=== PATIENT | male | born 1965 | race Caucasian/White ===

== ENCOUNTER 2016-12-25 09:46 | Inpatient (IN) | payer OTHER ==
--- NOTE | 2016-12-25 11:21 | EDPHY ---
H & P Stated Complaint: Exacerbation chronic back/sciatica after bending to leaf size picker slipper this am Time Seen by Provider: 12/25/16 10:22 HPI/ROS: CHIEF COMPLAINT: back pain HISTORY OF PRESENT ILLNESS: 51-year-old male presents emergency department sent by Dr. Romeo office for an MRI of his lumbar spine. Patient has acute on chronic low back pain with radiation down his left leg. He has had 2 fusions, last 1 in 2013 of L4 through S1, over the last couple months he has had increasing pains in his left leg that are intermittent, sharp and shooting and severe. Patient reports today he noticed numbness in his foot while putting his slipper on. He feels radiation and pressure in his pelvis. He reports paresthesias in his pelvis. No loss of control of his bowel or bladder. REVIEW OF SYSTEMS: A comprehensive 10 point review of systems is otherwise negative aside from elements mentioned in the history of present illness. Source: Patient, RN/MD - Personal History Current Tetanus Diphtheria and Acellular Pertussis (TDAP): Yes - Medical/Surgical History Hx Asthma: Yes Other PMH: Back surgery 04/2014; foot drop. thyroid - Social History Smoking Status: Never smoked - Physical Exam Exam: Physical Exam Gen: Alert and Oriented, NAD HEENT: PERRL, moist mucous membranes NECK: no meningismus CV: regular rate and regular rhythm PULM: CTAB, no wheezes ABDOMEN: soft, non tender to palpation, BS present BACK: No midline or si joint tenderness. NEURO: Neurologically grossly intact, foot drop on left, 1+ dtrs left patellar and achilles, 2+ on right. Decreased sensation left lateral lower leg EXTREMITIES: normal appearing SKIN: no rash or break in skin on exposed skin PSYCH: answers questions appropriately. Constitutional: Initial Vital Signs Temperature (C) 36.7 C 12/25/16 09:47 Heart Rate 54 L 12/25/16 09:47 Respiratory Rate 16 12/25/16 09:47 Blood Pressure 134/89 H 12/25/16 09:47 O2 Sat (%) 95 12/25/16 09:47 O2 Delivery Mode Room Air Allergies/Adverse Reactions: No Known Allergies Allergy (Unverified 12/25/16 09:51) Home Medications: Medication Instructions Recorded Fluticasone Hfa 110 Mcg [Flovent 1 puffs IH BID 12/25/16 110 MCG Hfa MDI (*)] Levothyroxine [Synthroid 88 mcg 88 mcg PO DAILY06 12/25/16 (*)] TESTOSTERONE [Androgel 1.62% pump] 1 sushma TD 12/25/16 Medical Decision Making ED Course/Re-evaluation: 51-year-old male presents with acute on chronic left-sided lumbar radiculitis with new saddle paresthesias and numbness in left leg. MRI shows severe canal narrowing and synovial cyst at L3-L4 level. Dr. Romeo has seen in consult on patient and is going to take him to the operating room later today for a L3-4 fusion. Patient is aware and comfortable with this plan. Departure - Departure Disposition: [facility] Inpatient Acute Clinical Impression: Left lumbar radiculitis Condition: Fair Referrals: HEBERT SANTIAGO [Other] - As per Instructions
[2016-12-25] MEDS ORDERED: HYDROmorphONE/DILAUDID 1 MG/ML SYR IVP PRN (12:48)
[2016-12-25] MEDS ORDERED: LACTULOSE 20 GM/30 ML UDCUP PO PRN (12:48)
[2016-12-25] MEDS ORDERED: BISACODYL 10 MG SUPP PR PRN (12:48)
[2016-12-25] MEDS ORDERED: DIAZEPAM 10 MG/2 ML SYR IVP PRN (12:48)
[2016-12-25] MEDS ORDERED: HYDROCODONE/APAP 10/325 TAB PO PRN (12:48)
[2016-12-25] MEDS ORDERED: METHOCARBAMOL 750 MG TAB PO PRN (12:48)
[2016-12-25] MEDS ORDERED: NALOXONE HCL 0.4 MG/ML INJ IVP PRN (12:48)
[2016-12-25] MEDS ORDERED: TEMAZEPAM 15 MG CAP PO PRN (12:48)
[2016-12-25] MEDS ORDERED: ONDANSETRON 4 MG/2 ML VIAL IVP PRN (12:48)
[2016-12-25] MEDS ORDERED: HYDROmorphONE/DILAUDID 6 MG/30 ML PCA IV PRN (12:48)
[2016-12-25] MEDS ORDERED: DIAZEPAM 5 MG TAB PO PRN (12:48)
[2016-12-25] MEDS ORDERED: ONDANSETRON DISINTEGRATING 4 MG TAB PO PRN (12:48)
[2016-12-25] MEDS ORDERED: oxyCODONE IR 5 MG TAB PO PRN (12:48)
[2016-12-25] MEDS ORDERED: MAGNESIUM HYDROXIDE 30 ML UDCUP PO PRN (12:48)
[2016-12-25] MEDS ORDERED: diphenhydrAMINE 25 MG CAP PO PRN (12:48)
[2016-12-25] MEDS ORDERED: POLYETHYLENE GLYCOL 3350 17 GM PKT PO PRN (12:48)
[2016-12-25 13:00] LABS: % IMMATURE GRANULYOCYTES 0.1 % (0.0-1.1); ABSOLUTE IMMATURE GRANULOCYTES 0.01 10^3/uL (0.00-0.10); ADD DIFF? NO; ADD MORPH? NO; ADD SCAN? NO; ATYPICAL LYMPHOCYTE FLAG 10 (0-99); FRAGMENT RBC FLAG 0 (0-99); HEMATOCRIT 49.5 % (40.0-51.0); HEMOGLOBIN 17.1 g/dL (13.7-17.5); LEFT SHIFT FLG 0 (0-99); LIPEMIA HEMOLYSIS FLAG 90 (0-99); MEAN CELL HEMOGLOBIN 31.5 pg (27.9-34.1); MEAN CELL HEMOGLOBIN CONCENTR. 34.5 g/dL (32.4-36.7); MEAN CELL VOLUME 91.2 fL (81.5-99.8); MEAN PLATELET VOLUME 10.6 fL (8.7-11.7); PLATELET CLUMPS FLAG 0 (0-99); PLATELET COUNT 212 10^3/uL (150-400); RED BLOOD CELL COUNT 5.43 10^6/uL (4.40-6.38)
[2016-12-25 13:18] LABS: ANION GAP 7 mEq/L (8-16); CALCIUM 9.6 mg/dL (8.5-10.4); CARBON DIOXIDE 27 mEq/l (22-31); CHLORIDE 106 mEq/L (97-110); GLOMERULAR FILTRATION RATE > 60; GLUCOSE 96 mg/dL (70-100); POTASSIUM 4.6 mEq/L (3.5-5.2); SODIUM 140 mEq/L (134-144)
--- NOTE | 2016-12-25 13:28 | GHP ---
[f rep st] HISTORY AND PHYSICAL DATE OF ADMISSION: 12/25/2016 The patient was seen in the emergency department both by myself and Dr. Romeo at 12:25 p.m. on 12/07. CHIEF COMPLAINT: 1. History of L4-5, L5-S1 fusion in 2013. 2. New onset of bilateral lower extremity pain with perianal numbness and saddle anesthesia. HISTORY OF PRESENT ILLNESS: The patient is a 51-year-old male who called our office earlier today s tating that he had some numbness in his groin and perianal numbness that has worsened over the past few days. He spoke with Sylvia Mcdonald, our nurse practitioner, and she directed him immediately to [facility] emergency department for evaluation and MRI of the lumbar spine. The patient has acute on chronic lower back pain and radiation mainly down his left leg at this time. He has had 2 fusions at L4-5 and L5-S1. In 2001, he had a microdiskectomy done in the lower levels of the lumbar spine. Over [facility] last few months he has had increasing pain in his left leg that have been intermittent, but have b een more consistent at this point and he describes it as a sharp, shooting and severe pain. He was seen in the emergency department. MRI was done which showed severe adjacent segment disease above h is fusion at L3-4. The numbness is now present down in his foot and describes change in sensation w hen he was putting a slipper on earlier. He feels a radiation and pressure in his pelvis as well. No loss of bowel or bladder control at this time. No upper extremity complaints of numbness, tingli ng, weakness or pain. PAST MEDICAL HISTORY: Significant for: 1. Exercise-induced asthma. 2. Low thyroid. 3. Low testosterone. PAST SURGICAL HISTORY: 1. Microdiskectomy in 2001. 2. ORIF of left wrist. 3. L4-5, L5-S1 fusion on 04/25/2014. MEDICATIONS: 1. Levothyroxine. 2. Testosterone. 3. Advil. No blood thinning medicine such as aspirin, Coumadin or Plavix. ALLERGIES: No known drug allergies. FAMILY HISTORY: Noncontributory. SOCIAL HISTORY: The patient is . He has 4 children. He does not smoke. He drinks occasi onal alcohol. Denies any drug use. He is very active. IMMUNIZATIONS: Reported up to date. TRAVEL: No recent travel. REVIEW OF SYSTEMS: Complete review of systems in conjunction with the above noted for the following . HEENT: No headache, no diplopia, no blurred vision. No loss of visual field. No hearing loss, tinnitus or vertigo. PULMONARY: No cough, sputum production, hemoptysis, dyspnea or pleuritic ches t pain. CARDIAC: No chest pain or pressure. No palpitations. GI: No weight loss or gain. No na usea, vomiting, or diarrhea. : No dysuria, hematuria, nocturia, urgency or frequency. NEURO: P atient denies any dizziness, syncope, seizures. Does have some paresthesias. Does have some new we akness in left lower extremity. He does have some change in sensation. Anal area and saddle numbne ss. PSYCHIATRIC: No suicidality or homicidality. PHYSICAL EXAMINATION: GENERAL: This is an awake, alert, oriented male in no acute distress. Able to follow commands appropriately. VITAL SIGNS: Blood pressure 126/84, MAP 98, heart rate 53, respi rations 14, and 96% on room air. HEENT: Normocephalic, atraumatic. Pupils are equal, round, react huma to light. EOMIs intact. Full visual denney by confrontation. Ears are patent. Nose is patent . NECK: Soft, supple. No midline tenderness. Full range of motion in flexion, extension, lateral bending, rotation. RESPIRATORY/CARDIAC: No rales, rhonchi, wheeze or rub. ABDOMEN: Soft, nonten cosme. No peritoneal signs. /RECTAL: Deferred. NEURO: Patient is awake, alert, oriented to name , place, location, date, time, and situation. Memory is intact to immediate, past, and current even ts. Speech: No aphasia, dysarthria, dysphonia. Cranial nerves 2-12 grossly intact. Motor: Patie nt has 5/5 strength in all muscle groups of bilateral upper and lower extremities to include deltoid s, biceps, triceps, brachioradialis, wrist flexors and extensors, wire winder intrinsic fingers, iliopsoas, quadriceps, hamstring, plantar flexion, dorsiflexion, EHL testing with the exception of left EHL 0/ 5 and left dorsiflexion at 1/5; this is consistent with history. Sensation is grossly intact to lig ht touch throughout all dermatome distributions in upper and lower extremities. Negative straight l eg raise. Negative CARLEY test. Reflexes of biceps, triceps, brachioradialis, knee jerk, and ankle jerk 2+/4, except for diminished in left Achilles. Toes are downgoing bilaterally. Hilton is nega tive. Babinski negative. MEDICAL DECISION MAKING/DIAGNOSTIC STUDIES: No laboratory tests obtained. MRI of the lumbar spine obtained without contrast shows postoperative changes at L4-5, L5-S1. MRIs also showed severe adjacent segment disease, and large synovial cyst, and canal narrowing at th e adjacent segment of L3-4. IMPRESSION: 1. History of L4-5, L5-S1 fusion on 04/25/2014. 2. History of exercise-induced asthma, low thyroid and low testosterone. 3. 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 DISCUSSION: The patient is a 51-year-old very active male who had return to normal lifestyle geri pittman. Over the past few months he has developed worsening pain and now has pain down the left leg, as well as some perianal numbness. He called our office earlier today and our nurse practitioner, Analilia Mcdonald, directed him to the emergency department for an MRI. The patient had an MRI in the em ergency department which showed severe adjacent segment disease and will add him on for surgery zoe dumas. He was seen and evaluated in the emergency department both by myself and Dr. Romeo. We revie wed the risks of surgery such as injury to blood vessels, nerves, risk of infection, postoperative c omplications, need for further surgery, and other risks such as coma, , paralysis, stroke, bloo d clots, heart attacks, pneumonia. Patient understands these risks and wished to proceed. Consents were reviewed, and all questions and concerns were answered, and he signed and agreed. /[id number]/MODL
[2016-12-25] MEDS ORDERED: THROMBIN (BOVINE) 5,000 UNIT VIAL TP ONE (14:58)
[2016-12-25] MEDS ORDERED: BUPIVACAINE/EPI 0.25% 30 ML SDV ONE (14:59)
[2016-12-25] MEDS ORDERED: BACITRACIN 50,000 UNITS/10 ML SYR IRR ONE (14:59)
[2016-12-25] MEDS ORDERED: MIDAZOLAM 2 MG/2 ML VIAL ONE (16:00)
[2016-12-25] MEDS ORDERED: LIDOCAINE 2% 5 ML SDV ONE (16:00)
[2016-12-25] MEDS ORDERED: PROPOFOL 200 MG/20 ML VIAL ONE (16:00)
[2016-12-25] MEDS ORDERED: ROCURONIUM 50 MG/5 ML VIAL ONE (16:01)
[2016-12-25] MEDS ORDERED: HYDROmorphONE/DILAUDID 2 MG/ML INJ ONE (16:03)
[2016-12-25] MEDS ORDERED: DEXAMETHASONE 4 MG/ML VIAL ONE ×2 (16:16)
[2016-12-25] MEDS ORDERED: ONDANSETRON 4 MG/2 ML VIAL ONE (16:17)
[2016-12-25] MEDS ORDERED: epHEDrine SULFATE 10 MG/ML SYR ONE ×2 (17:33)
[2016-12-25] MEDS ORDERED: ceFAZolin 2 GM/DEXTROSE 100 ML IV ONE (17:45)
--- NOTE | 2016-12-25 19:57 | SOAPPROG ---
SOAP Progress Note Assessment/Plan: Post Op Visit S: Awake and alert. NAD. Pt with expected lower back pain O: AFVSS/PERRLA/EOMI no droop CN 2-12 grossly intact +lt touch 5/5 BUE/BLE = CHRIS in place and working well CDI A/P: 51 yo male that is s/p TLIF at L3/4 -orders in place -call with any questions or concerns -take medications as directed -seen by Dr Romeo 12/25/16 19:50 Objective: Vital Signs Temp Pulse Resp BP Pulse Ox 36.8 C 49 L 16 130/93 H 95 12/25/16 14:15 12/25/16 14:15 12/25/16 14:15 12/25/16 14:15 12/25/16 14:15 Laboratory Results 12/25/16 12:48 12/25/16 12:48 ICD10 Worksheet Patient Problems: Problems Problem Status Onset Arthrodesis status Acute Left lumbar radiculitis Acute Lumbar stenosis Acute - ICD10 Problem Qualifiers (1) Lumbar stenosis (2) Arthrodesis status
[2016-12-25] MEDS ORDERED: FAMOTIDINE 20 MG/NACL 50 ML IV SCH (21:00)
[2016-12-25] MEDS: SENNOSIDES/DOCUSATE SODIUM TAB PO SCH (21:28)
[2016-12-25] MEDS: FAMOTIDINE 20 MG TAB PO SCH (21:28)
[2016-12-25] MEDS: NS W/ 20 KCl/L 1,000 ML IV SCH (21:28)
[2016-12-25] MEDS: ACETAMINOPHEN 325 MG TAB PO PRN ×2 (21:28→23:40)
[2016-12-25] MEDS: FLUTICASONE HFA 110 MCG MDI IH SCH (21:37)
--- NOTE | 2016-12-25 22:25 | GOP ---
[f rep st] OPERATIVE REPORT DATE OF OPERATION: 12/25/2016 SURGEON: Kaitlin Romeo MD [employer] ADJUSTER: Joon White PA-C PREOPERATIVE DIAGNOSIS: Cauda equina syndrome, severe spinal stenosis L3-4, right synovial cyst L3- 4, prior lumbar surgery L4-5 and L5-S1 with prior fusion surgery, left lumbosacral radiculopathy. POSTOPERATIVE DIAGNOSIS: Cauda equina syndrome, severe spinal stenosis L3-4, right synovial cyst L3 -4, prior lumbar surgery L4-5 and L5-S1 with prior fusion surgery, left lumbosacral radiculopathy. PROCEDURE PERFORMED: Removal of posterior segmental instrumentation L4-L5-S1 with exploration of fu erwin at that level (75631), posterior, lateral and intervertebral arthrodesis with bilateral decompr essions L3-4 and placement of nonsegmental hardware across a single interspace at L3-4 (06617), plac ement of biomechanical intervertebral device L3-4 (46997), spinal stereotaxy, same-incision bone gra ft harvest, microscope. FINDINGS: ESTIMATED BLOOD LOSS: 150 cc. DESCRIPTION OF PROCEDURE: The patient was taken to the operating room, placed in supine position. General anesthesia was begun. He was flipped prone onto the Herbert table. Care was taken to pad a ll points of contact. His back was sterilely prepped and draped in the usual fashion. His prior in cision was measured at 6 cm in length. We opened the prior incision. We ended up extending it for another 6 cm, making a 12 cm incision. He was a thin person, but the subcutaneous tissue and subfas cial tissues were somewhat tight, so we made the incision longer to get good exposure. We were able to expose all the hardware at L4-5, L5-S1, and the hardware was removed with ease. There were no l oose screws or fracture or malfunction of the hardware appreciated. There was solid posterolateral bone. There was no motion between L4-5, L5-S1. We then drilled the hypertrophic bilateral L3-4 fac et joints and decorticated the L3-4 transverse processes, attached the Stealth reference frame to th e L3 spinous process, and performed an O-arm spin. The O-arm spin allowed us to inspect his L4-5, L 5-S1 fusion and he did have a solid bony union L4-5, L5-S1. He had excellent bone quality. We ther efore elected instrument only the L3-4 level. We placed pedicle screws bilaterally at L3 and new pe dicle screws bilaterally at L4, placed rods down over the screws, they were lordotic rods, and it re duced the L3, slightly pulling it back dorsally compared L4. We were happy with this and we did dis tract the disk space. We then removed all the soft tissue of the bone at L3-4 and harvested the L4 spinous process and the inferior L3 spinous process for autologous grafting purposes. We then drill ed bilateral L3 laminectomies and harvested this bone for autologous grafting purposes and introduce d the operating microscope and decompressed the thecal sac. On the left-hand side, we decompressed the traversing L4 nerve root, and underneath the L4 nerve root on the left was a very sharp spicule of acute disk herniation present. It was not a free fragment. It was coming up out of the annulus. This was seen on the MRI and this is almost certainly the cause of the left leg pain. We performe d a microdiskectomy on the left side. On the right side was a huge synovial cyst coming out of the L3-4 facet joint. It was firmly adherent to the dura. We were eventually able to free it and peel it from a lateral to medial approach and get a great resection of the dura. It had an hourglass sig n where this had been compressing. This was causing very severe central spinal stenosis and right l ateral recessed stenosis. It was completely removed. We removed the right L3-4 facet joint. We pe rformed a diskectomy and roughened the subchondral bone at L3-4. We placed a trial to size the inte rspace and chose a 9 x 28 mm expandable intervertebral device. It was inserted under fluoroscopic g uidance and we expanded it to its full height of nearly 14 mm. It was expanded in a torque limited way. We had released our cap screws on our rods and this allowed the lordosis to increase at the L3 -4 level. We then re-tightened these after expanding the device. Bone autograft had been placed in to the interspace and we used a grand total of 1 mg in the interspace and 0.5 mg of bone morphogenic protein posterolaterally. We placed bone autograft posterolaterally, decorticated all the posterol ateral bone bilaterally. We placed a subfascial drain and then closed the incision in multiple laye rs using Vicryl sutures. A running PDS was placed in the skin itself. The patient was reversed fro m anesthesia, extubated, and transferred to the recovery room in stable condition. There were no co mplications. COMPLICATIONS: None. INDICATIONS FOR THE PROCEDURE: The patient is a 51-year-old who about 3 years ago underwent a lumba r fusion at L4-5, L5-S1. He had a chronic left footdrop that failed to improve, but it dramatically improved the pain in his lower back, and he was happy with the outcome of the surgery. He was cont inuing to bleed an extremely active lifestyle and was involved in numerous physical activities, incl uding rowing in September of this year, and he developed pain in the left leg with that was difficult for him and was growing worse over time. It failed to respond to conservative treatment. This morn ing, he called our office complaining of a new onset of worsening, really relentless, pain in the le ft leg, but also now he was developing numbness and tingling throughout his genitalia and perineal r egion and we requested that he go immediately to the emergency room at [facility]. He did have weakness of his legs, but he did have increased subjective weakness of the left foot and left leg pain. An MRI of the lumbar spine was done, demonstrating very severe occlusive stenosis a t L3-4 due to a new right-sided L3-4 synovial cyst. There was left lateral recessed stenosis, facet arthropathy, and severe adjacent segment disease. Because of his numbness and tingling in the tashi gaby regions, we did recommend immediate surgery. He was also in really exquisite pain and he did w ant to proceed. We did not feel there were any conservative measures and he was admitted to the [facility] from the emergency room and taken immediately to the OR to prevent progression of his cauda eq uina syndrome. The risk of adjacent segment disease, nerve injury, spinal fluid leak, and the possi ble failure of the surgery to alleviate his symptoms, was discussed. He had terrible pain radiating down the left leg and he thought it was more of a S1 type phenomenon than L3-4, but we reassured hi rebekah that it is almost certainly due to the problems at L3-4. He knew there was a chance that these sy mptoms could persist. The risk of nerve injury, spinal fluid leak, and screw and hardware malpositi on was discussed. He knew that he may require additional surgery like this in the future at another segment. /[id number]/MODL
[2016-12-26] MEDS: LEVOTHYROXINE 88 MCG TAB PO SCH (04:47)
[2016-12-26] MEDS: ACETAMINOPHEN 325 MG TAB PO PRN ×4 (04:50→23:37)
[2016-12-26] MEDS: FLUTICASONE HFA 110 MCG MDI IH SCH ×2 (09:38→19:49)
[2016-12-26] MEDS: FAMOTIDINE 20 MG TAB PO SCH ×2 (09:41→19:47)
[2016-12-26] MEDS: SENNOSIDES/DOCUSATE SODIUM TAB PO SCH ×2 (09:41→19:47)
--- NOTE | 2016-12-26 11:13 | SOAPPROG ---
SOAP Progress Note Assessment/Plan: Assessment: 51 yo M POD #1 L3/4 TLIF Plan: stable PT/OT LSo brace when out of bed scd/víctor/lovenox on POD #3 for dvt prophylaxis x-rays today please call with neuro changes discussed with Dr Romeo 12/26/16 11:11 Subjective: + back pain, no leg pain, Objective: Vital Signs Temp Pulse Resp BP Pulse Ox 36.7 C 96 16 114/83 H 95 12/26/16 07:44 12/26/16 07:44 12/26/16 07:44 12/26/16 07:44 12/26/16 07:44 Laboratory Results 12/25/16 12:48 12/25/16 12:48 12/25/16 12/26/16 12/27/16 05:59 05:59 05:59 Intake Total 3163 Output Total 1250 1100 Balance 1913 -1100 AAOx4, +FC PERRL, EOMI, no facial droop 5/5 except left DF 1/5, EHL 0/5 + light touch C/D/I ICD10 Worksheet Patient Problems: Problems Problem Status Onset Arthrodesis status Acute Left lumbar radiculitis Acute Lumbar stenosis Acute
[2016-12-26] MEDS: NS W/ 20 KCl/L 1,000 ML IV SCH (12:47)
[2016-12-26 16:20] VITALS: RESP 16
[2016-12-26 23:39] VITALS: TEMP 98.9
[2016-12-27] MEDS: ACETAMINOPHEN 325 MG TAB PO PRN (05:42)
[2016-12-27] MEDS: LEVOTHYROXINE 88 MCG TAB PO SCH (05:42)
[2016-12-27 08:11] VITALS: BP 123/83; PULSE 79; O2SAT 96
--- NOTE | 2016-12-27 08:14 | NEUSURGPN ---
Assessment/Plan: Assessment: 51 yo M POD #2 L3/4 TLIF Plan: stable PT/OT Remove CHRIS drain LSO brace when out of bed scd/víctor/lovenox on POD #3 for dvt prophylaxis x-rays show stable hardware please call with neuro changes discussed with Dr Romeo DC to home Subjective: Pt resting in bed, feeling much better after taking some pain meds. Worried about getting addicted to oxycodone which happened to him in the past after wrist injury. Objective: AAOx3 NAD VSS MAEx4 Motor 5/5 BLE with exception of L foot drop Incision cdi CHRIS in place +LT Urinary Catheter in Place: No - Physician Discussed Patient with : [facility] Physical Exam - Vitals, I&O, Labs I and O 12/26/16 12/27/16 12/28/16 05:59 05:59 05:59 Intake Total 3163 1100 Output Total 1250 4140 Balance 1913 -3040 Weight 85 kg Intake: Oral (ml) 1500 1100 IV Intake (ml) 900 IV Infused (ml) 763 NS W/ 20 KCl/L 1,000 ml @ 713 75 mls/hr IV CONT SO Rx #:[id number] ceFAZolin 1 GM/DEXTROSE 50 50 ml @ 200 mls/hr IV Q8H SO Rx#:[id number] Output: Urine (ml) 1000 4000 Toilet 1000 4000 Estimated Blood Loss (ml) 100 Wound Drainage (ml) 150 140 #1 Back Herbert Jerez 150 140 Other: Number of Voids Toilet 1 3 Vital Signs Temp Pulse Resp BP Pulse Ox 37.2 C 79 16 123/83 H 96 12/26/16 23:39 12/27/16 08:11 12/27/16 08:11 12/27/16 08:11 12/27/16 08:11 Laboratory Results 12/25/16 12:48 12/25/16 12:48 ICD10 Worksheet Patient Problems: Problems Problem Status Onset Arthrodesis status Acute Left lumbar radiculitis Acute Lumbar stenosis Acute
[2016-12-27] MEDS: SENNOSIDES/DOCUSATE SODIUM TAB PO SCH (08:42)
[2016-12-27] MEDS: FAMOTIDINE 20 MG TAB PO SCH (08:42)
[2016-12-28] MEDS ORDERED: ENOXAPARIN 40 MG/0.4 ML SYR SC SCH (09:00)
== END 2016-12-27 10:15 | disposition home or self-care (01) | DRG 460 ==
LOC: F3N 14:02
PROVIDERS: ADMIT Neurological Surgery; ATTEND Neurological Surgery
DX: M48.06 Spinal stenosis, lumbar region (principal); M54.17 Radiculopathy, lumbosacral region; G83.4 Cauda equina syndrome; M71.38 Other bursal cyst, other site; J45.990 Exercise induced bronchospasm; Z98.1 Arthrodesis status
CPT/HCPCS: 97161-GP; 97166-GO; 97530-GP; C1713; J0690; J1100; J1170; J2250; J2405; J2704